=== PATIENT | female | born 1970 | race African-American/Black ===

== ENCOUNTER 2016-04-07 15:27 | Emergency (ER) | payer MEDICAID ==
--- NOTE | 2016-04-07 15:50 | ER Document Report ---
ED Medical Screen (RME) - General Stated Complaint: EYE PAIN Mode of Arrival: Ambulatory Information source: Patient Notes: c/o left eyelid pain since wednesday, reports right eye hurt last week. reports her vision sometimes goes blurry. does not wear contacts, denies discharge. left upper eyelid with some erythema, swelling to left lower outer eyelid- denies hx of stye. TRAVEL OUTSIDE OF THE [place] IN LAST 30 DAYS: No - Related Data Allergies/Adverse Reactions: No Known Allergies Allergy (Verified 04/07/16 15:47) Past Medical History - Social History Family history: DM, Hypertension - Past Medical History Cardiac Medical History: Denies: Hx Heart Attack, Hx Hypertension Pulmonary Medical History: Denies: Hx Asthma Neurological Medical History: Denies: Hx Seizures GI Medical History: Denies: Hx Hiatal Hernia, Hx Ulcer Past Surgical History: Reports: Hx Abdominal Surgery - hernia repair, Hx Orthopedic Surgery - bilat legs when child, Hx Tubal Ligation. Denies: Hx Hysterectomy, Hx Mastectomy, Hx Open Heart Surgery - Immunizations Immunizations up to date: No Hx Diphtheria, Pertussis, Tetanus Vaccination: No Physical Exam - Vital signs Vitals: Temp Pulse Resp BP Pulse Ox 98.6 F 37 L 18 141/92 H 100 04/07/16 15:39 04/07/16 15:39 04/07/16 15:39 04/07/16 15:39 04/07/16 15:39 Course - Vital Signs Vital signs: Temp Pulse Resp BP Pulse Ox 98.6 F 37 L 18 141/92 H 100 04/07/16 15:39 04/07/16 15:39 04/07/16 15:39 04/07/16 15:39 04/07/16 15:39
[2016-04-07] MEDS ORDERED: TETRACAINE HCL 0.5% OPH SOLN 2 ML OS ONE (18:31)
--- NOTE | 2016-04-07 19:13 | ER Document Report ---
HPI - HPI Patient complains to provider of: eye lid swelling Pain Level: 5 Context: eye lid swelling since wednesday, previously affect right eye and resolved with warm compresses. vision intact, denies vision changes. otherwise denies PMH - REPRODUCTIVE Reproductive: DENIES: : - DERM Skin Color: Normal Past Medical History - General Information source: Patient - Social History Smoking Status: Current Every Day Smoker Chew tobacco use (# tins/day): No Frequency of alcohol use: None Drug Abuse: None Family History: Reviewed & Not Pertinent Patient has suicidal ideation: No Patient has homicidal ideation: No - Past Medical History Cardiac Medical History: Denies: Hx Heart Attack, Hx Hypertension Pulmonary Medical History: Denies: Hx Asthma Neurological Medical History: Denies: Hx Seizures Renal/ Medical History: Denies: Hx Peritoneal Dialysis GI Medical History: Denies: Hx Hiatal Hernia, Hx Ulcer Past Surgical History: Reports: Hx Abdominal Surgery - hernia repair, Hx Orthopedic Surgery - bilat legs when child, Hx Tubal Ligation. Denies: Hx Hysterectomy, Hx Mastectomy, Hx Open Heart Surgery - Immunizations Immunizations up to date: No Hx Diphtheria, Pertussis, Tetanus Vaccination: No Vertical Provider Document - CONSTITUTIONAL Agree With Documented VS: Yes Exam Limitations: No Limitations General Appearance: WD/WN, No Apparent Distress - INFECTION CONTROL TRAVEL OUTSIDE OF THE [place] IN LAST 30 DAYS: No - HEENT HEENT: Atraumatic, Normocephalic, PERRLA. negative: Conjuctival Injection Notes: Unilateral eyelid swelling of the left thigh upper eyelid. Tender to palpation otherwise benign on exam. - RESPIRATORY O2 Sat by Pulse Oximetry: 100 Course - Re-evaluation Re-evalutation: 04/07/16 22:59 Patient is evidence of blepharitis which is consistent with her history. Educated on warm compresses at home and Polytrim drops. 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 - Vital Signs Vital signs: Temp Pulse Resp BP Pulse Ox 98.6 F 37 L 18 141/92 H 100 04/07/16 15:39 04/07/16 15:39 04/07/16 15:39 04/07/16 15:39 04/07/16 15:39 Discharge - Discharge Clinical Impression: Blepharitis of eyelid of left eye Qualifiers: Blepharitis type: unspecified type Eyelid: upper Qualified Code(s): H01.004 - Unspecified blepharitis left upper eyelid Condition: Good Disposition: HOME, SELF-CARE Additional Instructions: Sty Your examination reveals that you have a sty. This is an infection of a hair follicle in the eyelid. As the infection progresses, it forms an abscess along the edge of the eyelid. A sty causes a lot of swelling and tenderness. As the body fights the infection, a lump forms. The knot slowly goes away over a couple of weeks. Treatment includes applying warm compresses to the eye for 10 to 15 minutes every two or three hours. Usually, the infection will drain from the abscess spontaneously, however, some sties require surgical drainage. You may be given antibiotic eye drops to prevent the infection from spreading to the surface of the eye. If the doctor is concerned that the infection is severe, you may be given antibiotics by mouth or shot. Call the doctor at once if vision decreases, if swelling becomes severe, or if eye pain becomes severe. See the doctor for follow-up should you fail to improve as expected. Please follow up with your eye doctor within 7 days Prescriptions: Polymyxin B Sulf/Trimethoprim [Polytrim Eye Drops] 1 drop OD Q3H #10 ml Forms: Elevated Blood Pressure
[2016-04-07 19:19] VITALS: BP 149/95
== END 2016-04-07 19:16 | disposition home or self-care (01) ==
LOC: ER 15:27
DX: H01.004 Unspecified blepharitis left upper eyelid (principal); H57.11 Ocular pain, right eye; F17.210 Nicotine dependence, cigarettes, uncomplicated
CPT/HCPCS: 99283

== ENCOUNTER → 2016-06-16 | Outpatient (CLI) | payer MEDICAID | LOC: RAD 09:19 | PROVIDERS: ATTEND Surgery | DX: K43.2 Incisional hernia without obstruction or gangrene (principal); N63 Unspecified lump in breast | CPT/HCPCS: 74177 ==

== ENCOUNTER → 2017-02-12 | Outpatient (CLI) | payer MEDICAID ==
--- NOTE | 2017-02-12 16:04 | WOMENS IMAGING REPORT ---
EXAM DESCRIPTION: BILAT SCREENING MAMMO W/CAD COMPLETED DATE/TIME: 02/12/2017 3:47 pm REASON FOR STUDY: ROUTINE SCREENING; Z12.31 Z12.31 ENCNTR SCREEN MAMMOGRAM FOR MALIGNANT NEOPLASM O F MARI COMPARISON: Multiple since 2009 TECHNIQUE: Standard craniocaudal and mediolateral oblique views of each breast recorded using [employer] acquisition. LIMITATIONS: None. FINDINGS: Findings present which are benign by mammographic criteria. No suspicious masses, calcifi cations or architectural distortion. Pertinent benign findings: Multiple bilateral breast parenchymal cysts are present Read with the assistance of CAD. .[facility] - R2 Cenova Version 1.3 .[facility] Imaging - R2 Cenova Version 1.3 .[facility] Imaging - R2 Cenova Version 2.4 .[facility] [place]2 Cenova Version 2.4 .[facility] - R2 Extended Day Teacher Version 9.2 Benign mammographic findings may include one or more of the following: Smooth masses, popcorn/rim/co arse calcifications, asymmetries, post-procedure changes, and lesions with long-standing stability. IMPRESSION: BENIGN MAMMOGRAPHIC FINDINGS. BIRADS 2 BREAST DENSITY: b. There are scattered areas of fibroglandular density. BIRAD: 2 BENIGN FINDING(S) RECOMMENDATION: ROUTINE SCREENING COMMENT: The patient has been notified of the results by letter per MQSA requirements. Additional no tification policies are in place for contacting patient with suspicious or incomplete findings. Quality ID #[id number]: The [employer] recommends an annual screening mammogram for women aged 40 years or over. This facility utilizes a reminder system to ensure that all patients receive reminder letters, and/or direct phone calls for appointments. This includes reminders for routine scr eening mammograms, diagnostic mammograms, or other Breast Imaging Interventions when appropriate. Th is patient will be placed in the appropriate reminder system. The [employer] (ACR) has developed recommendations for screening MRI of the breast s in certain patient populations, to be used in conjunction with mammography. Breast MRI surveillanc e may be appropriate for women with more than 20% lifetime risk of developing breast cancer as deter mined by genetic testing, significant family history of the disease, or history of mantle radiation f or Hodgkins Disease. ACR Practice Guidelines 2008. TECHNICAL DOCUMENTATION: FINDING NUMBER: (1) ASSESSMENT: (1) JOB ID: [id number] [employer]- All Rights Reserved
== END ==
LOC: WI 14:53
PROVIDERS: ATTEND Physician Assistant
DX: Z12.31 Encounter for screening mammogram for malignant neoplasm of breast (principal)
CPT/HCPCS: 77067; G0202

== ENCOUNTER → 2017-07-21 | Outpatient (CLI) | payer MEDICAID ==
--- NOTE | 2017-07-21 16:59 | WOMENS IMAGING REPORT ---
EXAM DESCRIPTION: RIGHT DIAGNOSTIC MAMMO W/CAD; U/S BREAST UNILATERAL, COMPL COMPLETED DATE/TIME: 07/21/2017 2:07 pm; 07/21/2017 2:37 pm REASON FOR STUDY: LUMP IN RIGHT BREAST N63.13 UNSPECIFIED LUMP IN THE RIGHT BREAST, LOWER OUTER BRENDA COMPARISON: Multiple mammograms since 2009 Right breast ultrasound 01/28/2016 TECHNIQUE: Standard craniocaudal, 90 mediolateral and mediolateral oblique images of the breast rec orded with digital acquisition. Right breast ultrasound was also performed. LIMITATIONS: None. FINDINGS: BREAST: Right MASSES: There are multiple well-circumscribed low-density mammographic masses which are breast parenc hymal cysts at ultrasound. Deep to the palpable marker in the upper outer quadrant, a [address] is present. CALCIFICATIONS: No new or suspicious calcifications. ARCHITECTURAL DISTORTION: None. DEVELOPING DENSITY: None. ASYMMETRY: None noted. OTHER: No other significant findings. Read with the assistance of CAD. .[facility] - R2 Cenova Version 1.3 .[facility] Imaging - R2 Cenova Version 1.3 .[facility] Imaging - R2 Cenova Version 2.[address] [place] - R2 Cenova Version 2.4 .[facility] - R2 Marketing Operations Coordinator Version 9.2 Right breast ultrasound: Deep to the patient's skin marker for palpable abnormality, a 5 cm breast parenchymal cyst is present . Other smaller cysts less than 3 cm are present elsewhere in the right breast. IMPRESSION: Palpable abnormality right breast upper outer quadrant correlates with a 5 cm breast par enchymal cyst. This could be aspirated under ultrasound for pain relief. BREAST DENSITY: b. There are scattered areas of fibroglandular density. BIRAD: 2 Benign findings. RECOMMENDATION: RECOMMENDED FOLLOW UP: Clinical follow-up recommended for breast cysts. Ultrasound- guided cyst aspiration could be performed to provide pain relief. Otherwise, please continue yearly bilateral screening mammography in January 2018 SPECIFIC INTERVENTION/IMAGING/CONSULTATION RECOMMENDED:Consider breast cyst aspiration under ultrasou nd guidance for pain relief. COMMUNICATION:Patient notified by letter COMMENT: The patient has been notified of the results by letter per MQSA requirements. Additional no tification policies are in place for contacting patient with suspicious or incomplete findings. Quality ID #[id number]: The [employer] recommends an annual screening mammogram for women aged 40 years or over. This facility utilizes a reminder system to ensure that all patients receive reminder letters, and/or direct phone calls for appointments. This includes reminders for routine scr eening mammograms, diagnostic mammograms, or other Breast Imaging Interventions when appropriate. Th is patient will be placed in the appropriate reminder system. The [employer] (ACR) has developed recommendations for screening MRI of the breast s in certain patient populations, to be used in conjunction with mammography. Breast MRI surveillanc e may be appropriate for women with more than 20% lifetime risk of developing breast cancer as deter mined by genetic testing, significant family history of the disease, or history of mantle radiation f or Hodgkins Disease. ACR Practice Guidelines 2008. TECHNICAL DOCUMENTATION: FINDING NUMBER: (1) ASSESSMENT: (1) JOB ID: [id number] [employer]- All Rights Reserved Reading location - IP/workstation name: [facility]-RR
--- NOTE | 2017-07-21 16:59 | WOMENS IMAGING REPORT ---
EXAM DESCRIPTION: RIGHT DIAGNOSTIC MAMMO W/CAD; U/S BREAST UNILATERAL, COMPL COMPLETED DATE/TIME: 07/21/2017 2:07 pm; 07/21/2017 2:37 pm REASON FOR STUDY: LUMP IN RIGHT BREAST N63.13 UNSPECIFIED LUMP IN THE RIGHT BREAST, LOWER OUTER BRENDA COMPARISON: Multiple mammograms since 2009 Right breast ultrasound 01/28/2016 TECHNIQUE: Standard craniocaudal, 90 mediolateral and mediolateral oblique images of the breast rec orded with digital acquisition. Right breast ultrasound was also performed. LIMITATIONS: None. FINDINGS: BREAST: Right MASSES: There are multiple well-circumscribed low-density mammographic masses which are breast parenc hymal cysts at ultrasound. Deep to the palpable marker in the upper outer quadrant, a [address] is present. CALCIFICATIONS: No new or suspicious calcifications. ARCHITECTURAL DISTORTION: None. DEVELOPING DENSITY: None. ASYMMETRY: None noted. OTHER: No other significant findings. Read with the assistance of CAD. .[facility] - R2 Cenova Version 1.3 .[facility] Imaging - R2 Cenova Version 1.3 .[facility] Imaging - R2 Cenova Version 2.4 .[facility] [place] R2 Cenova Version 2.4 .[facility] - R2 Casting Machine Service Operator Version 9.2 Right breast ultrasound: Deep to the patient's skin marker for palpable abnormality, a 5 cm breast parenchymal cyst is present . Other smaller cysts less than 3 cm are present elsewhere in the right breast. IMPRESSION: Palpable abnormality right breast upper outer quadrant correlates with a 5 cm breast par enchymal cyst. This could be aspirated under ultrasound for pain relief. BREAST DENSITY: b. There are scattered areas of fibroglandular density. BIRAD: 2 Benign findings. RECOMMENDATION: RECOMMENDED FOLLOW UP: Clinical follow-up recommended for breast cysts. Ultrasound- guided cyst aspiration could be performed to provide pain relief. Otherwise, please continue yearly bilateral screening mammography in January 2018 SPECIFIC INTERVENTION/IMAGING/CONSULTATION RECOMMENDED:Consider breast cyst aspiration under ultrasou nd guidance for pain relief. COMMUNICATION:Patient notified by letter COMMENT: The patient has been notified of the results by letter per MQSA requirements. Additional no tification policies are in place for contacting patient with suspicious or incomplete findings. Quality ID #[id number]: The [employer] recommends an annual screening mammogram for women aged 40 years or over. This facility utilizes a reminder system to ensure that all patients receive reminder letters, and/or direct phone calls for appointments. This includes reminders for routine scr eening mammograms, diagnostic mammograms, or other Breast Imaging Interventions when appropriate. Th is patient will be placed in the appropriate reminder system. The [employer] (ACR) has developed recommendations for screening MRI of the breast s in certain patient populations, to be used in conjunction with mammography. Breast MRI surveillanc e may be appropriate for women with more than 20% lifetime risk of developing breast cancer as deter mined by genetic testing, significant family history of the disease, or history of mantle radiation f or Hodgkins Disease. ACR Practice Guidelines 2008. TECHNICAL DOCUMENTATION: FINDING NUMBER: (1) ASSESSMENT: (1) JOB ID: [id number] [employer]- All Rights Reserved Reading location - IP/workstation name: [facility]RR
== END ==
LOC: WI 13:52
PROVIDERS: ATTEND Nurse Practitioner Family
DX: N63.13 Unspecified lump in the right breast, lower outer quadrant (principal)
CPT/HCPCS: 76641

== ENCOUNTER → 2017-12-27 | Outpatient (CLI) | payer MEDICAID ==
--- NOTE | 2017-12-27 15:21 | WOMENS IMAGING REPORT ---
EXAM DESCRIPTION: U/S BREAST UNILAT LIMITED; BILAT DIAGNOSTIC MAMMO W/CAD COMPLETED DATE/TIME: 12/27/2017 12:30 pm; 12/27/2017 11:34 am REASON FOR STUDY: BREAST LUMP; N63.13 RIGHT PALP N63.11 UNSPECIFIED LUMP IN THE RIGHT BREAST, UPPER OUTER BRENDA COMPARISON: 07/21/2017, 02/12/2017, and 01/28/2016. TECHNIQUE: Standard craniocaudal and mediolateral oblique views of each breast recorded using digita l acquisition. Additional true lateral and spot compression MLO and CC images of the right breast acquired. LIMITATIONS: None. FINDINGS: RIGHT BREAST MASSES: Multiple circumscribed masses. CALCIFICATIONS: No new or suspicious calcifications. ARCHITECTURAL DISTORTION: None. DEVELOPING DENSITY: None. ASYMMETRY: None noted. OTHER: No other significant findings. LEFT BREAST MASSES: Multiple circumscribed masses. CALCIFICATIONS: No new or suspicious calcifications. ARCHITECTURAL DISTORTION: None. DEVELOPING DENSITY: None. ASYMMETRY: None noted. OTHER: No other significant finding. Read with the assistance of CAD: .[facility] - R2 Cenova Version 1.3 .[facility] Imaging - R2 Cenova Version 1.3 .[facility] Imaging - R2 Cenova Version 2.4 .[facility] - R2 Cenova Version 2.4 .[facility] - R2 Occupational Therapist Rehab Manager Version 9.2 BREAST ULTRASOUND: TECHNIQUE: Static and dynamic grayscale images acquired of the right breast in the specific areas of clinical/mammographic concern. Selected color Doppler images recorded. ELASTOGRAPHY PERFORMED: No. LIMITATIONS: None. FINDINGS: MASS: Multiple anechoic simple cysts. The palpable finding correlates to a simple cyst measuring 2.8 cm. No solid mass identified. Normal glandular tissue. ELASTOGRAPHY CHARACTERISTICS: Not applicable. OTHER: No other significant finding. IMPRESSION: Multiple circumscribed masses in both breasts secondary to known cysts. The palpable ar ea in the right breast corresponds to a simple cyst. No worrisome mammographic or sonographic findin gs. BREAST DENSITY: b. There are scattered areas of fibroglandular density. BIRAD: 2 Benign findings. RECOMMENDATION: RECOMMENDED FOLLOW UP: Birads 1 or 2: The patient should resume routine screening . SPECIFIC INTERVENTION/IMAGING/CONSULTATION RECOMMENDED:No additional intervention/ imaging/consultati on needed at this time. COMMUNICATION:The imaging findings were not discussed with the patient. Her referring provider has be en notified of the findings. COMMENT: The patient has been notified of the results by letter per SA requirements. Additional no tification policies are in place for contacting patient with suspicious or incomplete findings. Quality ID #[id number]: The [employer] recommends an annual screening mammogram for women aged 40 years or over. This facility utilizes a reminder system to ensure that all patients receive reminder letters, and/or direct phone calls for appointments. This includes reminders for routine scr eening mammograms, diagnostic mammograms, or other Breast Imaging Interventions when appropriate. Th is patient will be placed in the appropriate reminder system. The [employer] (ACR) has developed recommendations for screening MRI of the breast s in certain patient populations, to be used in conjunction with mammography. Breast MRI surveillanc e may be appropriate for women with more than 20% lifetime risk of developing breast cancer as deter mined by genetic testing, significant family history of the disease, or history of mantle radiation f or Hodgkins Disease. ACR Practice Guidelines 2008. TECHNICAL DOCUMENTATION: FINDING NUMBER: (1) ASSESSMENT: (1) JOB ID: [id number] [employer]- All Rights Reserved Reading location - IP/workstation name: [facility]
--- NOTE | 2017-12-27 15:21 | WOMENS IMAGING REPORT ---
EXAM DESCRIPTION: U/S BREAST UNILAT LIMITED; BILAT DIAGNOSTIC MAMMO W/CAD COMPLETED DATE/TIME: 12/27/2017 12:30 pm; 12/27/2017 11:34 am REASON FOR STUDY: BREAST LUMP; N63.13 RIGHT PALP N63.11 UNSPECIFIED LUMP IN THE RIGHT BREAST, UPPER OUTER BRENDA COMPARISON: 07/21/2017, 02/12/2017, and 01/28/2016. TECHNIQUE: Standard craniocaudal and mediolateral oblique views of each breast recorded using digita l acquisition. Additional true lateral and spot compression MLO and CC images of the right breast acquired. LIMITATIONS: None. FINDINGS: RIGHT BREAST MASSES: Multiple circumscribed masses. CALCIFICATIONS: No new or suspicious calcifications. ARCHITECTURAL DISTORTION: None. DEVELOPING DENSITY: None. ASYMMETRY: None noted. OTHER: No other significant findings. LEFT BREAST MASSES: Multiple circumscribed masses. CALCIFICATIONS: No new or suspicious calcifications. ARCHITECTURAL DISTORTION: None. DEVELOPING DENSITY: None. ASYMMETRY: None noted. OTHER: No other significant finding. Read with the assistance of CAD: .[facility] - R2 Cenova Version 1.3 .[facility] Imaging - R2 Cenova Version 1.3 .[facility] Imaging - R2 Cenova Version 2.4 .[facility] [place] - R2 Cenova Version 2.4 .[facility] - R2 Seafood Preparer Version 9.2 BREAST ULTRASOUND: TECHNIQUE: Static and dynamic grayscale images acquired of the right breast in the specific areas of clinical/mammographic concern. Selected color Doppler images recorded. ELASTOGRAPHY PERFORMED: No. LIMITATIONS: None. FINDINGS: MASS: Multiple anechoic simple cysts. The palpable finding correlates to a simple cyst measuring 2.8 cm. No solid mass identified. Normal glandular tissue. ELASTOGRAPHY CHARACTERISTICS: Not applicable. OTHER: No other significant finding. IMPRESSION: Multiple circumscribed masses in both breasts secondary to known cysts. The palpable ar ea in the right breast corresponds to a simple cyst. No worrisome mammographic or sonographic findin gs. BREAST DENSITY: b. There are scattered areas of fibroglandular density. BIRAD: 2 Benign findings. RECOMMENDATION: RECOMMENDED FOLLOW UP: Birads 1 or 2: The patient should resume routine screening . SPECIFIC INTERVENTION/IMAGING/CONSULTATION RECOMMENDED:No additional intervention/ imaging/consultati on needed at this time. COMMUNICATION:The imaging findings were not discussed with the patient. Her referring provider has be en notified of the findings. COMMENT: The patient has been notified of the results by letter per SA requirements. Additional no tification policies are in place for contacting patient with suspicious or incomplete findings. Quality ID #[id number]: The [employer] recommends an annual screening mammogram for women aged 40 years or over. This facility utilizes a reminder system to ensure that all patients receive reminder letters, and/or direct phone calls for appointments. This includes reminders for routine scr eening mammograms, diagnostic mammograms, or other Breast Imaging Interventions when appropriate. Th is patient will be placed in the appropriate reminder system. The [employer] (ACR) has developed recommendations for screening MRI of the breast s in certain patient populations, to be used in conjunction with mammography. Breast MRI surveillanc e may be appropriate for women with more than 20% lifetime risk of developing breast cancer as deter mined by genetic testing, significant family history of the disease, or history of mantle radiation f or Hodgkins Disease. ACR Practice Guidelines 2008. TECHNICAL DOCUMENTATION: FINDING NUMBER: (1) ASSESSMENT: (1) JOB ID: [id number] [employer]- All Rights Reserved Reading location - IP/workstation name: [facility]
== END ==
LOC: WI 10:57
PROVIDERS: ATTEND Nurse Practitioner Family
DX: N60.01 Solitary cyst of right breast (principal)
CPT/HCPCS: 76642; 77066